=== PATIENT | female | born 1945 | race Caucasian/White ===

== ENCOUNTER → 2019-06-27 | Outpatient (CLI) | payer MEDICARE, OTHER | END | disposition home or self-care (01) | LOC: RADPV 08:56 | PROVIDERS: ATTEND Internal Medicine Cardiovascular Disease | DX: R06.02 Shortness of breath (principal) | CPT/HCPCS: 93306 ==

== ENCOUNTER → 2020-03-05 | Outpatient (CLI) | payer MEDICARE, OTHER ==
[~2020-03-05] MED LIST: REGADENOSON 0.4 MG/5 ML PF SYRINGE IVP ONE; SESTAMIBI TC99M/UD ISOTOPE 1 EA INJ INJ ONE
[2020-03-05 08:30] VITALS: BP 159/84
[2020-03-05 10:34] VITALS: BP 142/66
== END | disposition home or self-care (01) ==
LOC: MSR 07:53
PROVIDERS: ATTEND Internal Medicine Cardiovascular Disease
DX: I25.10 Atherosclerotic heart disease of native coronary artery without angina pectoris (principal); I79.8 Other disorders of arteries, arterioles and capillaries in diseases classified elsewhere
CPT/HCPCS: 78452; 93017; 93880; A9500; J2785

== ENCOUNTER 2022-01-15 05:39 | Day surgery (SDC) | payer MEDICARE, OTHER ==
[2022-01-13 12:35] LABS: COVID AG,FIA SOURCE NASOPHARYNGEAL
[~2022-01-15] VITALS: Ht 154.9 cm; Wt 65.9 kg
[~2022-01-15 05:39] MED LIST changes: +AMLO-258 PO; +ASPI81TA39 PO; +BUDE10.27 IH; +FAMO20 PO; +LEVO75 PO; +LORA10TA7 PO; +MONT-35 PO; -REGADENOSON 0.4 MG/5 ML PF SYRINGE IVP ONE; -SESTAMIBI TC99M/UD ISOTOPE 1 EA INJ INJ ONE; +SODIUM CHLORIDE 0.9% 1,000 ML ONE
[2022-01-15] MEDS ORDERED: LIDOCAINE 2% 30 ML JELLY TP ONE (05:40)
[2022-01-15] MEDS ORDERED: BENZOCAINE 20% 50 MCG/SPRAY 57 GM TP ONE (05:40)
[2022-01-15] MEDS ORDERED: ALBUTEROL SULFATE 2.5 MG/0.5 ML NEB SOLUTION NEB ONE (05:40)
[2022-01-15] MEDS ORDERED: LIDOCAINE 4% 50 ML SOLUTION TP ONE (05:40)
[2022-01-15] MEDS ORDERED: SODIUM CHLORIDE 0.9% 1,000 ML IV ONE (06:30)
[2022-01-15] MEDS ORDERED: FentaNYL CITRATE PF 100 MCG/2 ML VIAL ONE (07:39)
[2022-01-15] MEDS ORDERED: MIDAZOLAM HCL 5 MG/ML VIAL ONE (07:39)
[2022-01-15] MEDS ORDERED: MethylPREDNISolone SOD SUCC 125 MG/2 ML VIAL ONE (08:34)
[2022-01-15] MEDS ORDERED: MethylPREDNISolone SOD SUCC 125 MG/2 ML VIAL IVP ONE (08:45)
[2022-01-15] MEDS ORDERED: OXYGEN THERAPY IH SCH (20:00)
== END 2022-01-15 10:30 | disposition home or self-care (01) ==
LOC: SURGERY 05:39
PROVIDERS: ATTEND Internal Medicine Critical Care Medicine
DX: J38.4 Edema of larynx (principal); B37.0 Candidal stomatitis; I10 Essential (primary) hypertension; Z79.899 Other long term (current) drug therapy; Z98.890 Other specified postprocedural states
CPT/HCPCS: 31623; 31624; 71045; 87015; 87070; 87101; 87206; 87220; 87426; 88112; 88184; 88185; 88305; 88312; 93005; C9803; J2250; J2930; J3010; J7030; J7613; Z7610